=== PATIENT | male | born 1965 | race African-American/Black ===

== ENCOUNTER 2020-07-14 17:12 | Observation (INO) ==
[2020-07-14] MEDS ORDERED: LACTATED RINGERS 1,000 ML IV STA (18:28)
[2020-07-14 18:46] LABS: Basophils % 0.2 % (0.0-0.8); Eosinophils # 0.1 10*3/uL (0.0-0.87); Eosinophils % 0.5 % (0.00-10.9); Hematocrit 39.5 VOL% (42.0-52.0); Immature Granulocytes % 0.8 %; Immature Granulocytes Absolute 0.14 #; Lymphocytes % 11.2 % (21.2-54.2); Mean Corpuscular HGB Conc 32.9 GM/DL (32-36); Mean Corpuscular Volume 86.4 FL (87-102); Mean Platelet Volume 12.1 FL (9.6-12.0); Monocytes % 6.8 % (1.7-12.7); Neutrophils % 80.5 % (38.7-73.9); Platelet Count 276 T/CUMM (130-400); Red Blood Count 4.57 MC/CUMM (3.8-5.5); Red Cell Distribution Width 15.3 % (9.3-17.3); White Blood Count 17.5 T/CUMM (4-12)
[2020-07-14 19:05] LABS: Alanine Aminotransferase 34 U/L (16-61); Albumin 4.1 G/DL (3.4-5.0); Alkaline Phosphatase 80 U/L (45-117); Amylase 118 U/L (25-115); Aspartate Amino Transferase 34 U/L (0-37); Bilirubin,Total < 0.39 MG/DL (0.2-1.0); Blood Urea Nitrogen 15 MG/DL (7-18); Calcium 9.2 MG/DL (8.5-10.1); Carbon Dioxide 25 MMOL/L (21-32); Estimated Glom Filtration Rate 67 ML/MIN; Glucose 143 MG/DL (74-106); Osmolality,Calculated 279.5 MOS/KG (273-304); Potassium 4.2 MMOL/L (3.5-5.1); Sodium 139 MMOL/L (136-145); Total Protein 8.3 G/DL (6.4-8.2)
[2020-07-14 19:08] LABS: INR 1.1; PT Patient Result 11.3 SECS (9.8-11.9); Partial Thromboplastin Time 27.9 SECS (23.9-33.8)
[2020-07-14] MEDS ORDERED: MORPHINE 4 MG/1 ML VIAL IV STA (19:13)
[2020-07-14] MEDS ORDERED: ONDANSETRON 4 MG/2 ML VIAL IV ONE (19:13)
[2020-07-14] MEDS ORDERED: ONDANSETRON 4 MG/2 ML VIAL IV PRN (20:14)
[2020-07-14] MEDS ORDERED: ACETAMINOPHEN 325 MG TABLET PO PRN (20:14)
[2020-07-14 20:32] LABS: Bacteria,Urine Occasional /HPF (Few); Hyaline Casts,Urine 1 /LPF (0-3); Mucus,Urine Occasional /LPF (Occasional); RBC,Urine 3 /HPF (0-4); Squamous Epithelial Cell,Urine Occasional /HPF (0-10); WBC,Urine 4 /HPF (0-6)
[2020-07-14 20:34] LABS: Barbiturates Screen,Urine Negative (Negative); Benzodiazepines Screen,Urine Negative (Negative); Cannabinoid Screen,Urine Negative (Negative); Opiate Screen,Urine Positive (Negative); Phencyclidine Screen,Urine Negative (Negative)
[2020-07-14 20:39] LABS: Urine Appearance Clear (Clear); Urine Specific Gravity 1.005 (1.001-1.035)
[2020-07-14 20:40] LABS: Bilirubin,Urine Negative (Negative); Blood, Urine Small mg/dL (Negative); Glucose,Urine (UA) 50 mg/dL (Negative); Ketones,Urine Negative (Negative); Nitrite,Urine Negative (Negative); Protein,Urine 100 MG/DL; Urine Color Yellow (Yellow); Urine Urobilinogen 0.2 EU/DL (0.2-1.0)
[2020-07-14] MEDS ORDERED: SODIUM CHLORIDE 0.9% 1,000 ML IV STA (20:42)
[2020-07-14] MEDS ORDERED: HYDROmorphone 2 MG/1 ML VIAL IV STA (20:42)
[2020-07-14] MEDS: DEXTROSE 5% NACL 0.45% 1,000 ML IV SCH (23:37)
[2020-07-15] MEDS: HYDROmorphone 2 MG/1 ML VIAL IV PRN ×3 (02:43→22:23)
[2020-07-15 04:51] LABS: Basophils # 0.1 10*3/uL (0.0-0.2); Basophils % 0.4 % (0.0-0.8); Eosinophils # 0.1 10*3/uL (0.0-0.87); Eosinophils % 0.5 % (0.00-10.9); Hematocrit 33.7 VOL% (42.0-52.0); Hemoglobin 11.1 GM/DL (14.0-18.0); Immature Granulocytes % 0.5 %; Immature Granulocytes Absolute 0.06 #; Lymphocytes # 2.8 10*3/uL (1.4-4.0); Mean Corpuscular HGB Conc 32.9 GM/DL (32-36); Mean Corpuscular Volume 86.4 FL (87-102); Mean Platelet Volume 11.8 FL (9.6-12.0); Monocytes % 7.5 % (1.7-12.7); Neutrophils % 68.1 % (38.7-73.9); Platelet Count 248 T/CUMM (130-400); Red Cell Distribution Width 15.2 % (9.3-17.3); White Blood Count 12.3 T/CUMM (4-12)
[2020-07-15 05:13] LABS: Albumin 3.4 G/DL (3.4-5.0); Bilirubin,Total 0.5 MG/DL (0.2-1.0); Calcium 8.7 MG/DL (8.5-10.1); Osmolality,Calculated 278.5 MOS/KG (273-304); Potassium 3.9 MMOL/L (3.5-5.1); Total Protein 7.1 G/DL (6.4-8.2)
[2020-07-15] MEDS ORDERED: PANTOPRAZOLE 40 MG VIAL IV SCH (09:00)
[2020-07-15] MEDS: DEXTROSE 5% NACL 0.45% 1,000 ML IV SCH (09:22)
[2020-07-15] MEDS ORDERED: ALBUTEROL/IPRATROPIUM 3 ML NEB RESP TX PRN (10:15)
[2020-07-15] MEDS ORDERED: HYDROmorphone 2 MG/1 ML VIAL IV PRN (10:15)
[2020-07-15] MEDS ORDERED: BISACODYL 5 MG TABLET PO PRN (10:15)
[2020-07-15] MEDS ORDERED: ONDANSETRON 4 MG/2 ML VIAL IV PRN (10:19)
[2020-07-15] MEDS: KETOROLAC 15 MG/1 ML VIAL IV SCH ×2 (12:16→18:11)
[2020-07-15] MEDS: ALBUTEROL/IPRATROPIUM 3 ML NEB RESP TX SCH ×2 (13:20→20:16)
[2020-07-15] MEDS: LIDOCAINE 5% PATCH TRANSDERM SCH (15:21)
[2020-07-15] MEDS: FLUTICASONE/SALMETEROL 250-50 DISKUS 14 DOSE INH SCH (21:25)
[2020-07-15] MEDS: FLUTICASONE 50 MCG NASAL SPRAY 16 GM BOTTLE BOTH NARES SCH (21:25)
[2020-07-15] MEDS: MONTELUKAST 10 MG TABLET PO SCH (21:25)
[2020-07-15] MEDS: INSULIN GLARGINE 100 UNIT/ML SUBCUT SCH (21:26)
[2020-07-16] MEDS: KETOROLAC 15 MG/1 ML VIAL IV SCH ×5 (00:21→23:27)
[2020-07-16] MEDS: ALBUTEROL/IPRATROPIUM 3 ML NEB RESP TX SCH ×4 (01:01→19:34)
[2020-07-16] MEDS: ENOXAPARIN 40 MG/0.4 ML SYRINGE SUBCUT SCH (05:41)
[2020-07-16 05:53] LABS: Basophils % 0.3 % (0.0-0.8); Eosinophils # 0.2 10*3/uL (0.0-0.87); Eosinophils % 2.1 % (0.00-10.9); Hematocrit 33.6 VOL% (42.0-52.0); Immature Granulocytes % 0.4 %; Immature Granulocytes Absolute 0.04 #; Lymphocytes # 2.7 10*3/uL (1.4-4.0); Lymphocytes % 29.9 % (21.2-54.2); Mean Corpuscular HGB Conc 32.7 GM/DL (32-36); Mean Corpuscular Volume 86.4 FL (87-102); Mean Platelet Volume 11.9 FL (9.6-12.0); Monocytes % 7.9 % (1.7-12.7); Neutrophils % 59.4 % (38.7-73.9); Platelet Count 223 T/CUMM (130-400); Red Blood Count 3.89 MC/CUMM (3.8-5.5)
[2020-07-16 06:48] LABS: Hypochromasia Slight; Lymphocytes 22 % (20-55); Platelet Estimate Normal; Segmented Neutrophils 72 % (50-85); Total Cells Counted 100
[2020-07-16] MEDS: CETIRIZINE 10 MG TABLET PO SCH (08:28)
[2020-07-16] MEDS: PANTOPRAZOLE 40 MG TABLET PO SCH (08:28)
[2020-07-16] MEDS: lisinopriL 5 MG TABLET PO SCH (08:29)
[2020-07-16] MEDS: MAGNESIUM GLUCONATE 500 MG TABLET PO SCH (08:29)
[2020-07-16] MEDS: FEXOFENADINE 180 MG TABLET PO SCH (08:30)
[2020-07-16] MEDS: FLUTICASONE 50 MCG NASAL SPRAY 16 GM BOTTLE BOTH NARES SCH ×2 (08:30→20:32)
[2020-07-16] MEDS: FLUTICASONE/SALMETEROL 250-50 DISKUS 14 DOSE INH SCH ×2 (08:30→20:32)
[2020-07-16] MEDS: LIDOCAINE 5% PATCH TRANSDERM SCH (08:31)
[2020-07-16] MEDS ORDERED: NON-FORMULARY MEDICATION (Tiotropium Bromide [Spiriva With Handihaler] 18 mcg Capsule, W/I INH SCH (09:00)
[2020-07-16] MEDS: MONTELUKAST 10 MG TABLET PO SCH (20:32)
[2020-07-16] MEDS: INSULIN GLARGINE 100 UNIT/ML SUBCUT SCH (20:32)
[2020-07-16] MEDS: HYDROmorphone 2 MG/1 ML VIAL IV PRN (23:29)
[2020-07-17] MEDS: ALBUTEROL/IPRATROPIUM 3 ML NEB RESP TX SCH ×2 (00:08→06:56)
[2020-07-17] MEDS: ENOXAPARIN 40 MG/0.4 ML SYRINGE SUBCUT SCH (05:16)
[2020-07-17] MEDS: KETOROLAC 15 MG/1 ML VIAL IV SCH ×2 (05:16→12:26)
[2020-07-17] MEDS: MAGNESIUM GLUCONATE 500 MG TABLET PO SCH (09:21)
[2020-07-17] MEDS: CETIRIZINE 10 MG TABLET PO SCH (09:21)
[2020-07-17] MEDS: PANTOPRAZOLE 40 MG TABLET PO SCH (09:22)
[2020-07-17] MEDS: lisinopriL 5 MG TABLET PO SCH (09:22)
[2020-07-17] MEDS: FEXOFENADINE 180 MG TABLET PO SCH (09:22)
[2020-07-17] MEDS: FLUTICASONE 50 MCG NASAL SPRAY 16 GM BOTTLE BOTH NARES SCH (09:22)
[2020-07-17] MEDS: FLUTICASONE/SALMETEROL 250-50 DISKUS 14 DOSE INH SCH (09:22)
[2020-07-17] MEDS: LIDOCAINE 5% PATCH TRANSDERM SCH (09:23)
[2020-07-17 11:56] VITALS: BP 113/68
== END 2020-07-17 13:09 | disposition home or self-care (01) ==
LOC: EDSEX → N.ED 17:12 → N.EDINP 17:12 → N.3E 07-15 11:31
PROVIDERS: ADMIT Surgery; ATTEND Surgery